=== PATIENT | female | born 1945 | race Caucasian/White ===

== ENCOUNTER → 2016-06-26 | Outpatient (CLI) | payer MEDICARE, OTHER ==
[~2016-06-26] MED LIST: AMLO5TAB2 GT; AMLO5TAB2 PO; METO200T2 PO
--- NOTE | 2016-06-26 16:41 | Diagnostic Imaging Report ---
Bilateral screening mammogram. The current study was also evaluated with a Computer Aided Detection (CAD) system. INDICATION: Screening. No current complaints stated on the questionnaire. COMPARISON: 05/03/15. FINDINGS: The breasts are composed of scattered fibroglandular densities. There is no mass, architectural distortion or suspicious cluster of calcification seen. Allowing for technique and positional differences, no suspicious change is seen. IMPRESSION: No significant change. ACR BI-RADS Category 2: Benign findings. Result letter will be mailed to the patient. Note: At least 10% of breast cancer is not imaged by mammography. Dictated by: Dictated on workstation # [id number]
== END ==
LOC: RAD 10:55
PROVIDERS: ATTEND Nurse Practitioner Family
DX: Z12.31 Encounter for screening mammogram for malignant neoplasm of breast (principal)

== ENCOUNTER → 2017-06-15 | Outpatient (CLI) | payer MEDICARE, OTHER ==
--- NOTE | 2017-06-15 15:09 | Diagnostic Imaging Report ---
INDICATION: Routine screening. COMPARISON: 06/26/2016 and 05/03/2015. FINDINGS: Both breasts show mild parenchymal density. There are increasing calcifications within a cluster in the upper aspect of the right breast at anterior depth when compared with the prior exam. Additional imaging including magnification and 90 degree lateral views would be recommended. The left breast is stable. The axillae are unremarkable. IMPRESSION: Right breast microcalcifications. Additional imaging is recommended. ACR BI-RADS Category 0: Incomplete. (Needs additional imaging evaluation). Result letter will be mailed to the patient. Note: At least 10% of breast cancer is not imaged by mammography. Dictated by: Dictated on workstation # [id number]
== END ==
LOC: RAD 11:06
PROVIDERS: ATTEND Family Medicine
DX: Z12.31 Encounter for screening mammogram for malignant neoplasm of breast (principal)
CPT/HCPCS: 77067

== ENCOUNTER → 2017-06-29 | Outpatient (CLI) | payer MEDICARE, OTHER ==
--- NOTE | 2017-06-29 11:34 | Diagnostic Imaging Report ---
Indication: Right breast calcifications. Patient presents for additional views. Correlation is made with screening study from 06/15/2017 and mammogram from 06/26/2016. The current study was also evaluated with a Computer Aided Detection (CAD) system. A 3-D 90 degree lateral view as well as spot compression CC and ML views right breast were obtained. There is a nodular density at the 12 o'clock location of the right breast. This does contain punctate calcifications. No other masses are seen. IMPRESSION: BI-RADS zero Tiny nodular density 12 o'clock location of the right breast with internal calcifications. Further evaluation with ultrasound is recommended. ACR BI-RADS Category 0: Incomplete. (Needs additional imaging evaluation). Result letter will be mailed to the patient. Note: At least 10% of breast cancer is not imaged by mammography. Dictated by: Dictated on workstation # [id number]
--- NOTE | 2017-06-29 14:34 | Diagnostic Imaging Report ---
Indication: Abnormal mammogram. This study is performed for further evaluation. Correlation is made with diagnostic mammogram from earlier the same day. Sonographic interrogation of the upper right breast was performed. There is a somewhat ill-defined hypoechoic nodule at the 12 o'clock location of the right breast, 3 cm from the nipple. This is slightly taller than it is wide and measures 4 mm x 4 mm x 3 mm. There are internal calcifications present, corresponding with the nodule and calcifications noted on mammography. No internal blood flow is seen. No other abnormalities are detected. Impression: BI-RADS category 4 Hypoechoic nodule with internal calcifications 12 o'clock location of the right breast, corresponding with the mammographic abnormality. This is indeterminate and tissue sampling is recommended. This would likely be amenable to ultrasound-guided core biopsy. ACR BI-RADS Category 4: Suspicious abnormality. Report was called to Dr. Roman by arleen at 2:33 pm. Dictated by: Dictated on workstation # [id number]
== END ==
LOC: RAD 08:29
PROVIDERS: ATTEND Family Medicine
DX: N63.10 Unspecified lump in the right breast, unspecified quadrant (principal); R92.1 Mammographic calcification found on diagnostic imaging of breast

== ENCOUNTER → 2017-07-09 | Outpatient (CLI) | payer MEDICARE, OTHER ==
[~2017-07-09] VITALS: Ht 162.6 cm; Wt 65.3 kg
[~2017-07-09] MED LIST changes: +LIDOCAINE 1% INJ 20 ML (XYLOCAINE) VIAL INJ ONE; +LIDOCAINE 1% INJ 50 ML (XYLOCAINE) VIAL ONE
[2017-07-09 12:56] VITALS: BP 134/80
[2017-07-09 13:55] VITALS: BP 129/80
--- NOTE | 2017-07-09 15:03 | Diagnostic Imaging Report ---
INDICATION: Right breast nodule. Patient presents for biopsy. TECHNIQUE: The patient was brought to the procedure room and placed on the bed in the supine position. Ultrasound imaging of the right breast was performed to evaluate for an appropriate entry site. The right breast was prepped and draped in the usual sterile fashion. A small amount of 1% lidocaine was utilized for local anesthesia. A total of 3 core biopsies was made of the tiny hypoechoic nodule at the 12 o'clock location of the right breast 3 cm from the nipple utilizing the hand-held vacuum assisted mammotome device. A localizer clip was deployed. Hemostasis was obtained using manual compression. IMPRESSION: Sonographically guided vacuum-assisted handheld mammotome biopsy of the hypoechoic nodule at the 12 o'clock location of the right breast, as described. The Pathology results are currently pending. Dictated by: Dictated on workstation # [id number]
--- NOTE | 2017-07-09 20:21 | Diagnostic Imaging Report ---
Indication: Right breast density. Study is performed status post ultrasound guided vacuum assisted core biopsy of the right breast. A right-sided CC and ML view was performed. There is a biopsy clip identified in the 12 o'clock location of the right breast, anterior depth, corresponding to the previously seen small nodular density and calcification. There are residual calcifications present. There is some increased density consistent with a small hematoma. IMPRESSION: A marker clip does appear to be adjacent to the small calcifications noted on the diagnostic mammogram from 06/15/2017. The patient is status post vacuum assisted core biopsy. Pathology results are currently pending. Dictated by: Dictated on workstation # [id number]
== END ==
LOC: RAD 12:35
PROVIDERS: ATTEND Nurse Practitioner Family
DX: N63.10 Unspecified lump in the right breast, unspecified quadrant (principal); N64.89 Other specified disorders of breast; R92.1 Mammographic calcification found on diagnostic imaging of breast
CPT/HCPCS: 19083

== ENCOUNTER → 2019-07-22 | Outpatient (CLI) | payer MEDICARE, OTHER ==
[~2019-07-22] MED LIST changes: +GADOBUTROL 10 MMOL/10 ML (GADAVIST) VIAL IV ONE; -LIDOCAINE 1% INJ 20 ML (XYLOCAINE) VIAL INJ ONE; -LIDOCAINE 1% INJ 50 ML (XYLOCAINE) VIAL ONE
--- NOTE | 2019-07-22 14:50 | Diagnostic Imaging Report ---
PROCEDURE: MR imaging of the brain with and without contrast. TECHNIQUE: Multiplanar, multisequence MR imaging of the brain was performed with and without contrast. INDICATION: Painful swelling behind the right ear as well as headaches. COMPARISON: No prior studies are available for comparison. FINDINGS: The ventricles and sulci are appropriate for the patient's age. There is extensive periventricular and subcortical white matter signal abnormalities noted consistent with chronic microvascular ischemia. No diffusion restriction is identified to suggest acute ischemia. No acute intra-axial or extra-axial hemorrhage is identified. No abnormal enhancement following contrast administration is identified. The corpus callosum is unremarkable. The sella and parasellar structures are unremarkable. At the area of pain and swelling behind the right ear, no significant abnormality is seen. There is a questionable bony excrescence arising from the calvarium just to the right of midline at the skull base. It is uncertain if this represents the patient's palpable abnormality. This could be better evaluated with CT. No other abnormalities are seen. IMPRESSION: 1. Extensive white matter changes consistent with chronic microvascular ischemia. No acute intracranial process is detected. 2. Bony excrescence in the right skull base, uncertain if this accounts for the patient's area of palpable abnormality and fullness. CT could be performed for better characterization. Dictated by: Dictated on workstation # [id number]
== END ==
LOC: RAD 13:31
PROVIDERS: ATTEND Nurse Practitioner Family
DX: R51 Headache (principal); R90.82 White matter disease, unspecified
CPT/HCPCS: 70553

== ENCOUNTER → 2019-07-31 | Outpatient (CLI) | payer MEDICARE, OTHER ==
[~2019-07-31] MED LIST changes: +CATHETER FLUSH 10 ML SYR IV PRN; -GADOBUTROL 10 MMOL/10 ML (GADAVIST) VIAL IV ONE; +HOLD METFORMIN - RECEIVED CONTRAST 20 ML VIAL IV SCH; +IOHEXOL 350 MG/ML 100 ML (OMNIPAQUE 350) VIAL IV ONE; +NS 100 ML (IVPB) BAG IV ONE
--- NOTE | 2019-07-31 14:28 | Diagnostic Imaging Report ---
PROCEDURE: CT head with and without contrast. TECHNIQUE: Multiple contiguous axial images were obtained through the brain before and after the administration of intravenous contrast. Auto Exposure Controls were utilized during the CT exam to meet ALARA standards for radiation dose reduction. INDICATION: Osseous density noted on recent MRI brain. COMPARISON: No prior head CT studies are available for comparison. Comparison is made with MRI brain from 07/22/2019. FINDINGS: There is an osseous excrescence arising from the right paramidline occipital bone correlating with the MRI abnormality. This measures 20 mm transverse x 9 mm AP x approximately 33 mm cephalocaudal. This does not appear to communicate with the marrow, which is seen with osteochondromas. This has benign features. Ventricles and sulci are consistent with the patient's age. There is moderate periventricular hypodensity noted consistent with senescent change. No sulcal effacement or midline shift is identified. No acute intra-axial or extra-axial hemorrhage is detected. No abnormal enhancement following contrast administration is identified. Visualized paranasal sinuses are clear. IMPRESSION: 1. Benign-appearing bony excrescence arising from the right occipital bone. 2. No acute intracranial process is identified. There are findings consistent with chronic microvascular ischemia and senescent change. Dictated by: Dictated on workstation # [id number]
== END ==
LOC: RAD 13:34
PROVIDERS: ATTEND Nurse Practitioner Family
DX: M95.2 Other acquired deformity of head (principal)
CPT/HCPCS: 70470

== ENCOUNTER → 2020-09-27 | Outpatient (CLI) | payer MEDICARE, OTHER ==
[~2020-09-27] MED LIST changes: -CATHETER FLUSH 10 ML SYR IV PRN; -HOLD METFORMIN - RECEIVED CONTRAST 20 ML VIAL IV SCH; -IOHEXOL 350 MG/ML 100 ML (OMNIPAQUE 350) VIAL IV ONE; -NS 100 ML (IVPB) BAG IV ONE
--- NOTE | 2020-09-27 14:45 | Diagnostic Imaging Report ---
PROCEDURE: CT head without contrast. TECHNIQUE: Multiple contiguous axial images were obtained through the brain without the use of intravenous contrast. Auto Exposure Controls were utilized during the CT exam to meet ALARA standards for radiation dose reduction. INDICATION: Left facial weakness. Intermittent aphasia. Left eye ache. Bilateral leg weakness. COMPARISON: CT head without contrast from 07/31/2019. FINDINGS: Moderate low-attenuation changes in the white matter bilaterally are similar to the prior exam. No CT evidence of a territorial infarction. No intracranial hemorrhage, mass effect, hydrocephalus, or extra-axial fluid collections. Osseous structures are intact. Mild mucosal thickening in the floor of the right maxillary sinus. The mastoids are clear. 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 IMPRESSION: 1. No acute intracranial CT findings. 2. Low-attenuation changes in the white matter bilaterally, compatible with moderate leukoaraiosis, are similar to the prior exam. Findings discussed with CHAPO Grigsby, at 02:37 p.m. on 09/27/2020. Dictated by: Dictated on workstation # [id number]
--- NOTE | 2020-09-27 14:47 | Diagnostic Imaging Report ---
INDICATION: Back pain. COMPARISON: None available. TECHNIQUE: Three views of the lumbar spine are obtained. FINDINGS: No spondylolisthesis. Vertebral bodies are normal in stature without fracture or ankylosis. No ankylosis in the posterior elements. Facet osteoarthritis is present at L5-S1 on both sides. SI joints are normal in appearance. Degenerative disc space narrowing is present at L3-L4 and L4-L5. Scattered vascular calcifications are noted in the aorta. IMPRESSION: 1. No compression fracture within the lumbar spine. 2. Multilevel mild degenerative disc disease and facet osteoarthritis. Dictated by: Dictated on workstation # [id number]
== END ==
LOC: RAD 14:03
PROVIDERS: ATTEND Nurse Practitioner Family
DX: M47.816 Spondylosis without myelopathy or radiculopathy, lumbar region (principal); M51.36 Other intervertebral disc degeneration, lumbar region; M62.81 Muscle weakness (generalized); R13.0 Aphagia; R29.810 Facial weakness; H57.12 Ocular pain, left eye; R90.82 White matter disease, unspecified
CPT/HCPCS: 70450; 72100

== ENCOUNTER → 2020-09-29 | Outpatient (CLI) | payer MEDICARE, OTHER ==
--- NOTE | 2020-09-29 17:08 | Diagnostic Imaging Report ---
PROCEDURE: US carotid duplex, bilateral. TECHNIQUE: Multiple real-time grayscale images were obtained over the carotid arteries in various projections, bilaterally. Additional spectral analysis and color Doppler duplex images were also obtained. INDICATION: Aphasia. Weakness. COMPARISON: None. FINDINGS: Right carotid arterial system: Right common carotid artery is normal in course and caliber. There is mild diffuse intimal thickening. There is however no significant atherosclerotic disease. Based on NASCET criteria, there is no focal significant stenosis. Left carotid arterial circulation: Left common carotid artery is normal in course and caliber. There is diffuse intimal thickening. No significant atherosclerotic disease is identified. By NASCET criteria, there is no focal significant stenosis. Right vertebral artery shows normal antegrade flow. Left vertebral artery is diminutive and difficult to adequately visualize. IMPRESSION: 1. No significant atherosclerotic disease identified on either side. Parameters based on the consensus panel [employer]wood-Scale and Doppler ultrasound criteria published March 2003, Radiology, Volume 229. DOPPLER (peak systolic velocity M/S Right Left CCA 8.4 8.3 ICA Proximal 6.4 6.1 ICA Mid 8.3 8.0 ICA Distal 9.8 6.9 RATIO 1.35 .79 ECA 10.7 8.7 VERT 4.8 2.2 Dictated by: Dictated on workstation # [id number]
== END ==
LOC: RAD 13:15
PROVIDERS: ATTEND Nurse Practitioner Family
DX: R53.1 Weakness (principal); R47.01 Aphasia
CPT/HCPCS: 93880